=== PATIENT | male | born 1940 | race Caucasian/White ===

== ENCOUNTER 2018-03-30 09:52 | Emergency (ER) | payer MEDICARE, OTHER ==
[2018-03-30] MEDS ORDERED: diphenhydrAMINE HCL 50 MG/ML VIAL IV ONE (10:01)
[2018-03-30] MEDS ORDERED: DEXAMETHASONE INJ 4 MG/ML VIAL IV ONE (10:01)
--- NOTE | 2018-03-30 10:25 | RAD ---
EXAM DESCRIPTION: Chest,1 View CLINICAL HISTORY:77 years Male, acute nv diarrhea, afib with variable conduction Comparison: None FINDINGS: No focal lung consolidation. Right perihilar nodular opacity No pleural effusion. No pneumothorax. Cardiac and mediastinal silhouette is unremarkable. No acute osseous abnormality. Soft tissues are unremarkable. IMPRESSION: No acute findings. No focal lung consolidation. Right perihilar nodular opacity favored to be vascular. A follow-up chest PA and lateral may be obtained for confirmation. Electronically signed by: Nicola Jacques MD 03/30/2018 10:24 AM [facility]
[2018-03-30] MEDS ORDERED: POTASSIUM CHLORIDE ELIXIR 20 MEQ/15 ML UD PO ONE (10:42)
[2018-03-30] MEDS ORDERED: SODIUM CHLORIDE 0.9% 1000ML 1,000 ML IVS ONE ×2 (11:13→12:58)
[2018-03-30] MEDS ORDERED: ACETYLCYSTEIN 20 % 6,000 MG/30 ML VIAL PO ONE (11:13)
[2018-03-30 12:07] VITALS: O2SAT 96
--- NOTE | 2018-03-30 12:32 | CT ---
EXAM DESCRIPTION: Abdomen/Pelvis w/Contrast (accession [id number]), CTA Chest (accession [id number]) CLINICAL HISTORY: 77 years Male, nv hypotension, abd pain acute, eval aorta COMPARISON: Chest x-ray from today TECHNIQUE: 5 mm axial images through the chest were performed after the administration of intravenous contrast using a CTA protocol. MIPS were performed. Subsequently, 5 mm axial images through the abdomen and pelvis were performed in coronal and sagittal reconstructions were obtained. This exam was performed according to our departmental dose-optimization program which includes use of Automated Exposure Control, adjustment of the mA and/or kV according to patient size and/or use of iterative reconstruction technique. FINDINGS: No pericardial or pleural effusion. Normal caliber aorta without dissection or aneurysm. Aortic branch vessels are patent. Vascular calcifications are mild. No pulmonary embolus is identified at 5 mm slice thickness images. Aside from minimal opacity is favored to represent atelectasis and a 3 mm noncalcified solid nodule at the periphery of the RIGHT lower lobe (axial image 37), the lungs are clear. Patent central airway. No mediastinal mass or pathologic enlargement of regional lymph nodes. A 1.2 cm hypoattenuating nodule involves the posterior LEFT lobe of the thyroid gland. No follow-up imaging for this lesion is recommended based on its size and patient age. Trace hiatal hernia. Gastroesophageal junction is filled with fluid. Fluid distends the stomach and continues throughout the bowel into the rectum. Noninflamed diverticuli project off the colon. Nonvisualized appendix possibly previously resected. No suspicious bowel wall thickening. No pericolonic fat stranding. Small amount of ascites. Postcontrast images of the liver, spleen, kidneys, adrenal glands, gallbladder and pancreas are unremarkable. No small bowel obstruction. Trace fat-containing umbilical hernia. No loop of bowel is contained. The bladder wall is thickened and irregular central mucosal portion is enhancing. The bladder is poorly distended. The prostate gland is hypertrophic. Fat-containing inguinal hernias are bilateral. Bones are osteopenic and degenerated with involvement of the hips and spine, greatest caudally. IMPRESSION: Normal caliber aorta without dissection. Mild aortic atherosclerosis. Fluid continues from the gastroesophageal junction into the distal colon. This is an abnormal but nonspecific finding that raising concern for a diarrheal state such as gastroenteritis. Reactive ascites. Bladder wall thickening and mucosal enhancement suggesting situs. Recommend correlation with urinalysis. Diverticulosis. 3 mm solitary peripherally located RIGHT lower lobe nodule does not require follow-up based on Fleischner Society criteria. Trace hiatal hernia. Fat-containing umbilical hernia. Fat-containing inguinal hernias. Electronically signed by: Shell Gomez MD 03/30/2018 12:31 PM [facility]
[2018-03-30] MEDS ORDERED: LOPERAMIDE CAP 2 MG CAP PO ONE (13:08)
--- NOTE | 2018-03-30 13:34 | ED.PDOC ---
History of Present Illness - General Chief Complaint: General Time Seen by Provider: 03/30/18 09:58 Source: patient Exam Limitations: no limitations - History of Present Illness Initial Comments: The patient is a 77-year-old male presenting to emergency room with his family by EMS secondary to havingan episode of diaphoresis and dizziness followed by nausea and vomiting and diarrhea. The patient did go to a football game last night and ate food from the game as well as some [employer]. He does have a history of significant arrhythmia. At one point he did have atrial fibrillation but is apparently not had that in a while. His top icer from the place that he just moved from had him on some xarelto. The patient has been told that he needs to have a pacemaker but he has not elected to do that to this point. Upon arrival the patient's blood pressures are in the 80s over 30s. His pulse actually varies wildly ranging from the high 30s up into the 110 's. Blood pressure is very from the 80s over 30s to the 140s over 60s depending on the pulse. He did have a near syncopal episode here while on the toilet with diarrhea. he has not had any fever or chest pain. He is having some abdominal pain but not really point pain. No definite palpable mass.telemetry monitoring shows what appears to be in normal sinus rhythm with frequent PACs and PVCs multiple of which do not produce a functional pulse at times his pulse will be done in the 40s but the electrical activity will be reading in the 90s on surveillance monitor. There are periods of 3-5 seconds where the patient will have PACs or PVCs on the monitor but no pulse generated. interestingly the patient also reports that this morning he feels like his lips are a little bit swollen and his hands are swollen. I do not see any of that and family does not see any of that. Timing/Duration: unsure Severity: severe Improving Factors: nothing Worsening Factors: nothing Associated Symptoms: diaphoresis, nausea/vomiting, weakness Allergies/Adverse Reactions: Allergies NO KNOWN ALLERGY Allergy (Verified 03/30/18 10:00) Home Medications: Ambulatory Orders Amlodipine Besylate [Amlodipine Besylate] 10 mg PO DAILY 03/30/18 Atorvastatin Calcium [Atorvastatin Calcium] 40 mg PO DAILY 03/30/18 Lisinopril [Lisinopril] 40 mg PO DAILY 03/30/18 Montelukast [Singulair] 10 mg PO DAILY 03/30/18 Omeprazole [Omeprazole] 40 mg PO DAILY 03/30/18 Rivaroxaban [Xarelto] 20 mg PO DAILY 03/30/18 Terazosin HCl [Terazosin HCl] 2 mg PO DAILY 03/30/18 Tramadol HCl 50 mg PO Q6H PRN 03/30/18 Review of Systems - Review of Systems Constitutional: States: malaise, weakness EENTM: States: no symptoms reported Respiratory: States: no symptoms reported Cardiology: States: other - near syncope Gastrointestinal/Abdominal: States: abdominal pain, diarrhea, nausea, vomiting Genitourinary: States: no symptoms reported Musculoskeletal: States: no symptoms reported Skin: States: no symptoms reported Neurological: States: other - near syncope Endocrine: States: no symptoms reported All other Systems: No Change from Baseline Past Medical History (General) - Patient Medical History Hx Stroke: No Hx Cardiac Disorders: Yes - Cardiac arrhythmia Hx Congestive Heart Failure: No Hx Hypertension: Yes Hx Diabetes: No Hx Gastroesophageal Reflux: Yes - Vaccination History Hx Influenza Vaccination: Yes - 2017 Hx Pneumococcal Vaccination: No - Social History Hx Tobacco Use: Yes - Quit 2002 Hx Alcohol Use: No Family Medical History - Family History Father Family History: No Known Living Status: Physical Exam - Physical Exam General Appearance: Alert, No apparent distress, Other - initially pale Eye Exam: bilateral normal Ears, Nose, Throat: normal ENT inspection, other - hronic hearing loss Neck: full range of motion, supple Respiratory: lungs clear, normal breath sounds, no respiratory distress, no accessory muscle use Cardiovascular/Chest: normal peripheral pulses, no edema, irregularly irregular Peripheral Pulses: radial,right: 2+, radial,left: 2+, dorsalis pedis,right: 2+, dorsalis pedis,left: 2+ Gastrointestinal/Abdominal: soft, other - mild diffuse discomfort throughout. No point tenderness. No rebound. No bruising. 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 He does have multiple scars from multiple lipoma removals. Comments: Vital Signs - 24 hr 03/30/18 03/30/18 03/30/18 09:52 10:50 11:34 Temperature 96.2 F L Pulse Rate [ 84 90 55 L Apical] Respiratory 24 24 16 Rate Blood Pressure 122/61 101/51 102/53 [Left Arm] O2 Sat by Pulse 93 L 91 L 95 Oximetry 03/30/18 12:06 Temperature Pulse Rate [ 65 Apical] Respiratory 16 Rate Blood Pressure 144/65 [Left Arm] O2 Sat by Pulse 96 Oximetry Progress - Progress Progress: 03/30/18 13:40 the patient is a 77-year-old male presenting to the emergency room after a near syncopal episode with nausea and vomiting and diarrhea. He does likely have a gastroenteritis. He has received IV fluids and antiemetics and is doing better from that. More significantly, and the reason the patient is being transferred is that he is having significant hypotension likely due to his cardiac arrhythmia issues, only being made worse currently by the gastroenteritis. The patient has frequent PACs and PVCs which do not really generate a functional pulse for the patient. Blood pressures have been as low as the 80s/30s and pulses as low as 38bpm. his pulse at other times has been up to 110 bpm, coinciding with systolic blood pressures in the 140s. he did have a near syncopal episode here. He has been advised by his previous top icer that he does need a pacemaker. Based upon his presentation here, I believe this is likely correct. The patient did have a CT angiogram performed primarily to help rule out aortic pathology or mesenteric ischemia as the cause of the presentation. These do not appear to be a source of the problem at this time based on the scans. His initial troponin was very slightly elevated at 0.07. Repeat one hour later did not show any rise but these will need to be followed further. D-dimer was elevated however he does have a negative CT angiogram of the chest. He has received a dose of Mucomyst and the IV fluids to help prevent contrast nephropathy. blood pressures have improved with the IV fluids with systolic lows now in the high 90s. Transferred for higher level of care. Acceptance is appreciated. critical care time spent for hypotension, functional bradycardia, as well as making arrangements for transfer for higher level of care and consultation with family is 40 minutes. - Results/Orders Results/Orders: EKG shows PACs and PVCs. Heart rate on the EKG is 76 bpm however this corresponded with a pulse of around 40. Slow R-wave transition. No acute ST segment or T-wave changes consistent with immediate ischemia on the normal beats. Possible mild left axis. Long QT interval. Telemetry monitoring for the last several hours has shown electrolyte activity varying significantly and rates from around 55-135 bpm. Pulses during the same time have ranged from 38 bpm to [address] angiogram of the chest and abdomen show a normal aorta. No evidence of any pulmonary embolus. He does have a 1.2 cm left lower lobe thyroid nodule. He has bilateral equal hernias and an umbilical hernia containing only fat. He has fluid throughout the intestine consistent with gastroenteritis. He does have bladder wall thickening that may yet require further workup. Laboratory Results - last 24 hr 03/30/18 03/30/18 03/30/18 10:08 10:08 10:08 WBC 7.7 RBC 6.09 Hgb 17.7 Hct 54.2 H MCV 89.0 MCH 29.1 MCHC 32.7 L RDW 16.3 H Plt Count 196 MPV 9.3 Absolute Neuts (auto) 3.60 Absolute Lymphs (auto) 2.90 Absolute Monos (auto) 0.70 Absolute Eos (auto) 0.30 Absolute Basos (auto) 0.10 Neutrophils % 47.2 Lymphocytes % 38.4 Monocytes % 9.3 H Eosinophils % 4.0 Basophils % 1.1 PT INR PTT (SP) D-Dimer, Quantitative Sodium 140 Potassium 3.4 L Chloride 105 Carbon Dioxide 28 Anion Gap 10.4 L BUN 19 H Creatinine 1.43 H BUN/Creatinine Ratio 13.3 Random Glucose 137 H Serum Osmolality 283.8 Lactic Acid Calcium 8.9 Magnesium 1.8 Total Bilirubin 0.6 AST 21 ALT 23 Alkaline Phosphatase 90 Creatine Kinase 81 CK-MB (CK-2) 4.0 CK-MB (CK-2) % Not Reportable Troponin I 0.07 H* B-Natriuretic Peptide 212.0 H* Serum Total Protein 6.3 L Albumin 3.5 Globulin 2.8 Albumin/Globulin Ratio 1.3 Amylase 186 H 03/30/18 03/30/18 03/30/18 10:08 11:34 11:34 WBC RBC Hgb Hct MCV MCH MCHC RDW Plt Count MPV Absolute Neuts (auto) Absolute Lymphs (auto) Absolute Monos (auto) Absolute Eos (auto) Absolute Basos (auto) Neutrophils % Lymphocytes % Monocytes % Eosinophils % Basophils % PT 10.6 INR 1.06 PTT (SP) 23.6 D-Dimer, Quantitative 0.59 H* Sodium Potassium Chloride Carbon Dioxide Anion Gap BUN Creatinine BUN/Creatinine Ratio Random Glucose Serum Osmolality Lactic Acid 1.7 Calcium Magnesium Total Bilirubin AST ALT Alkaline Phosphatase Creatine Kinase 74 CK-MB (CK-2) 3.8 CK-MB (CK-2) % Not Reportable Troponin I 0.06 H B-Natriuretic Peptide Serum Total Protein Albumin Globulin Albumin/Globulin Ratio Amylase Departure - Departure Clinical Impression: Bradycardia, Gastroenteritis Hypotension Qualifiers: Hypotension type: other hypotension type Qualified Code(s): I95.89 - Other hypotension Disposition: Transfer to Hospital Condition: Serious Home Medications: Ambulatory Orders Amlodipine Besylate [Amlodipine Besylate] 10 mg PO DAILY 03/30/18 Atorvastatin Calcium [Atorvastatin Calcium] 40 mg PO DAILY 03/30/18 Lisinopril [Lisinopril] 40 mg PO DAILY 03/30/18 Montelukast [Singulair] 10 mg PO DAILY 03/30/18 Omeprazole [Omeprazole] 40 mg PO DAILY 03/30/18 Rivaroxaban [Xarelto] 20 mg PO DAILY 03/30/18 Terazosin HCl [Terazosin HCl] 2 mg PO DAILY 03/30/18 Tramadol HCl 50 mg PO Q6H PRN 03/30/18 Transfer to Outside Facility - Transfer Information Accepting Provider:: dr dickerson Accepting Facility: [facility] Reason for Transfer: required specialist not available
[2018-03-30 14:45] VITALS: BP 128/77; TEMP 98.5
== END 2018-03-30 14:46 | disposition short-term general hospital (02) ==
LOC: ER 09:52
DX: K52.9 Noninfective gastroenteritis and colitis, unspecified (principal); I95.89 Other hypotension; R00.1 Bradycardia, unspecified; I49.1 Atrial premature depolarization; I49.3 Ventricular premature depolarization; R55 Syncope and collapse; I10 Essential (primary) hypertension; K21.9 Gastro-esophageal reflux disease without esophagitis; Z79.899 Other long term (current) drug therapy
CPT/HCPCS: 36415; 71045; 71275; 74177; 80053; 82150; 82550; 82553; 83605; 83735; 83880; 84484; 85025; 85379; 85610; 85730; 87040; 87502; 93005; J1100; J1200; J7030

== ENCOUNTER → 2018-11-20 | Outpatient (CLI) | payer MEDICARE, OTHER | LOC: GMAM 14:55 | PROVIDERS: ATTEND Family Medicine | DX: R06.02 Shortness of breath (principal) ==

== ENCOUNTER → 2018-12-04 | Outpatient (CLI) | payer MEDICARE, OTHER | LOC: GMAM 14:59 | PROVIDERS: ATTEND Family Medicine | DX: R06.02 Shortness of breath (principal) ==

== ENCOUNTER → 2019-03-24 | Outpatient (CLI) | payer MEDICARE, OTHER | LOC: GMAM 14:14 | PROVIDERS: ATTEND Family Medicine | DX: N40.1 Benign prostatic hyperplasia with lower urinary tract symptoms (principal); R10.30 Lower abdominal pain, unspecified; M54.5 Low back pain ==

== ENCOUNTER → 2019-03-26 | Outpatient (CLI) | payer MEDICARE, OTHER ==
--- NOTE | 2019-03-26 12:35 | CT ---
EXAM DESCRIPTION: Abdoment/Pelvis w/o Contrast: Computed Tomography. CLINICAL HISTORY: 78 years Male FLANK PAIN COMPARISON: CT scan abdomen and pelvis with IV contrast 30 March 2018. TECHNIQUE: Spiral-axial scans 2.5 x 2.5 mm intervals through the abdomen and pelvis without oral or IV contrast. Coronal and sagittal 2.0 mm reconstructions. Total Exam DLP: 870.94 mGy-cm. This exam was performed according to our departmental CT dose-optimization program which includes automated exposure control, adjustment of the mA and/or kV according to patient size and/or use of iterative reconstruction technique; to reduce radiation dose to as low as reasonably achievable (ALARA). FINDINGS: Lung bases and pleura: 4 mm solid subpleural nodule lateral aspect superior segment right lower lobe, axial image 2/9, not seen on the prior study. No acute findings. Liver, stomach, spleen, and adrenal glands: Negative. Pancreas, Gallbladder, and Ducts: Gallbladder visualized, otherwise unremarkable. Kidneys and Ureters: Bilateral mild cortical atrophy and perirenal fatty stranding stable. No hydronephrosis or hydroureter. Mesentery: Negative. Aorta: Minimal to moderate atherosclerotic calcification distally also in the origins of most of the major branch vessels. Small Bowel: Unremarkable. Terminal Ileum/Cecum: Normal caliber. Appendix not seen. Normal density of surrounding fat. Colon: Moderately redundant sigmoid colon with scattered diverticula but no complications. Pelvic Organs: Prostate gland abutting the seminal vesicles and urinary bladder with possible TURP defect. Spine and Bony Pelvis: Minimal spondylosis included thoracic spine minimal facet arthrosis lower lumbar spine. Abdominal Wall/Back Soft Tissues: Diastases of the umbilicus or small supraumbilical midline hernia containing fat only with the neck approximately 1 x 1 cm. No bowel hernia. No complications. Bilateral fatty inguinal hernias larger on the left with no bowel hernias and no complications. IMPRESSION: 1. No abdominal mass, no free fluid or free air. No renal abnormalities including stones in the kidneys or ureters. No inflammatory changes in the abdominal pelvic cavities. 2. Diverticulosis of the sigmoid colon no complications. 3. New midline supraumbilical hernia with 1 cm neck in the abdominal wall. No bowel and no other complications. Bilateral inguinal hernias stable with no bowel or other complications in the hernias. 4. 4.0 mm solid pulmonary nodule detected, in the right lower lobe, on incomplete chest CT. No routine follow-up imaging is recommended. These guidelines do not apply to immunocompromised patients and patients with cancer. Follow up in patients with significant comorbidities as clinically warranted. For lung cancer screening, adhere to Lung-RADS guidelines. Reference: Radiology. 2017; 284(1):228-43. Electronically signed by: Nagi Crespo MD 03/26/2019 12:33 PM [employer]
== END ==
LOC: CT 08:42
PROVIDERS: ATTEND Family Medicine
DX: K57.31 Diverticulosis of large intestine without perforation or abscess with bleeding (principal); K43.9 Ventral hernia without obstruction or gangrene; K40.20 Bilateral inguinal hernia, without obstruction or gangrene, not specified as recurrent; R91.1 Solitary pulmonary nodule

== ENCOUNTER → 2020-05-25 | Outpatient (CLI) | payer MEDICARE, OTHER | LOC: GMAM 14:37 | PROVIDERS: ATTEND Family Medicine | DX: Z12.5 Encounter for screening for malignant neoplasm of prostate (principal) ==

== ENCOUNTER → 2020-05-30 | Outpatient (CLI) | payer MEDICARE, OTHER ==
--- NOTE | 2020-05-30 15:52 | CT ---
EXAM DESCRIPTION: Chest w/Contrast CLINICAL HISTORY: SOLITARY PULMONARY NODULE COMPARISON: March 30, 2018 TECHNIQUE: Postcontrast CT images of the chest are obtained using standard imaging protocol. This exam was performed according to our departmental dose-optimization program, which includes automated exposure control, adjustment of the mA and/or kV according to patient size and/or use of iterative reconstruction technique . FINDINGS: Thyroid is stable from previous. The heart is enlarged. Tortuosity the thoracic aorta with scattered calcified plaque. No pathologically enlarged mediastinal, hilar, or axillary lymphadenopathy seen. No pleural or pericardial effusion. Visualized portion of the upper abdomen shows no acute findings. Lungs are normally aerated without acute appearing infiltrate or consolidation. 3 mm noncalcified pulmonary nodule along the pleura of the horizontal fissure in the right middle lobe is unchanged from previous. No other pulmonary nodules are identified. Mild spondylitic changes of the spine. IMPRESSION: Stable 3 mm noncalcified pulmonary nodule in the right lung. No further imaging follow-up is recommended based on Fleischner criteria especially given the stability over greater than 2 years. No acute findings on CT of the chest. Electronically signed by: Mich Mora MD 05/30/2020 3:50 PM [employer]ISTR[employer] REPRESENTATIVE
== END ==
LOC: CT 08:48
PROVIDERS: ATTEND Family Medicine
DX: R91.1 Solitary pulmonary nodule (principal)